=== PATIENT | female | born 1970 | race Caucasian/White ===

== ENCOUNTER → 2016-07-02 | Outpatient (CLI) | payer OTHER | LOC: RAD 01:17 | DX: Z12.31 Encounter for screening mammogram for malignant neoplasm of breast (principal) ==

== ENCOUNTER → 2017-07-07 | Outpatient (CLI) | payer OTHER | LOC: RAD 01:52 | DX: Z12.31 Encounter for screening mammogram for malignant neoplasm of breast (principal) ==

== ENCOUNTER → 2018-07-20 | Outpatient (CLI) | payer OTHER | LOC: RAD 01:17 | DX: Z12.31 Encounter for screening mammogram for malignant neoplasm of breast (principal) ==

== ENCOUNTER → 2019-08-02 | Outpatient (CLI) | payer OTHER | LOC: BC 08:47 | DX: Z12.31 Encounter for screening mammogram for malignant neoplasm of breast (principal) ==

== ENCOUNTER → 2020-05-05 | Outpatient (CLI) | payer OTHER | LOC: CAT 08:10 | DX: Z13.6 Encounter for screening for cardiovascular disorders (principal); I25.10 Atherosclerotic heart disease of native coronary artery without angina pectoris; E78.00 Pure hypercholesterolemia, unspecified ==

== ENCOUNTER → 2020-08-07 | Outpatient (CLI) | payer OTHER | LOC: RAD 10:38 | PROVIDERS: ATTEND Specialist | DX: Z12.31 Encounter for screening mammogram for malignant neoplasm of breast (principal); N63.21 Unspecified lump in the left breast, upper outer quadrant ==

== ENCOUNTER → 2021-01-24 | Outpatient (CLI) | payer OTHER | LOC: RAD 09:36 | PROVIDERS: ATTEND Obstetrics & Gynecology | DX: N64.4 Mastodynia (principal); N63.20 Unspecified lump in the left breast, unspecified quadrant ==

== ENCOUNTER → 2021-01-26 | Outpatient (CLI) | payer OTHER ==
--- NOTE | 2021-01-30 12:07 | PATH ---
[facility] [address] [place] [address] PATHOLOGY RPT PROCEDURE Name: JUANITAKEISHA Room #: REG RUBI Kaufman#: [id number] Admission: 01/26/21 Date of : 70 Discharge: Report #: [id number] Path Case #: [id number] [facility] Accession Number: [id number] . 01 Material submitted: . breast - LT BREAST MASS. Modifiers: left . 01 Clinical history: . 12 O'CLOCK SA . 02 Diagnosis: Breast (left breast mass biopsy): - Proliferative fibrocystic change with ductal ectasia, usual epithelial hyperplasia, ductal ectasia and intraductal microcalcification. - Focal intraductal papilloma with mild sclerosis identified. (FAUSTINO:kandy; 01/29/2021) MBR 01/29/2021 1554 Local . 02 Comment: We find no evidence of cytologic atypia or of malignancy. . This case is seen in consultation with Dr. Francisca Parr, who agrees with the diagnosis on 01/29/21. . (DIANAK:kandy; 01/29/2021) . . 02 Electronically signed: . Blane Lujan MD, Pathologist NPI- [id number] . 01 Gross description: . The specimen is received in formalin, labeled "Keisha Grant, left breast 12:00 SA". Received are 4 needle cores of fibrofatty tissue measuring 2.3 x 1.4 x 0.3 cm cm in aggregate dimensions. The specimen is submitted entirely in cassettes A1-A3. The specimen is collected at 1530 and placed into formalin at 1535 on 01/26/2021. The specimen is removed from formalin at 2240 on 01/26/2021. The total formalin fixation time is 7 hours and 5 minutes. ([facility]; 01/26/2021) NRI/NRI 01/26/2021 2129 Local . 02 Pathologist provided ICD-10: N60.12, N60.42, N62, D24.2, N60.32 . 02 CPT . [id number] [place] [address] PATHOLOGY RPT PROCEDURE Name: KEISHA GRANT RON [facility] #: [facility]#: [id number] Admission: 01/26/21 Date of : 70 Discharge: Report #: [id number] Path Case #: [id number] Specimen Comment: A courtesy copy of this report has been sent to [phone] Specimen Comment: [phone] Specimen Comment: Report sent to / DR MENDES Performed at: 01 [facility] [address] [id number] MD Scott Decker MD Phone: [phone] Performed at: [address] [id number] MD Blane Lujan MD Phone: [phone]
== END | disposition home or self-care (01) ==
LOC: ULTRA 14:00
PROVIDERS: ATTEND Obstetrics & Gynecology
DX: D24.2 Benign neoplasm of left breast (principal); N60.42 Mammary duct ectasia of left breast; N60.32 Fibrosclerosis of left breast; N62 Hypertrophy of breast; R92.1 Mammographic calcification found on diagnostic imaging of breast